=== PATIENT | female | born 1995 | race Caucasian/White ===

== ENCOUNTER 2021-10-31 12:29 | Emergency (ER) | payer OTHER ==
[~2021-10-31] VITALS: Ht 157.5 cm; Wt 113.4 kg
[2021-10-31 12:52] LABS: ABSOLUTE NEUTROPHILS 6.9 thou/uL (1.4-8.2); BASOPHILS 1.2 % (0.0-2.0); EOSINOPHILS 2.7 % (0.0-3.0); HEMOGLOBIN 14.9 gm/dL (12.0-15.0); LYMPHOCYTES 38.9 % (24.0-44.0); MCH 31.1 pg (26.0-34.0); MCHC 33.2 g/dL (28.0-37.0); MCV 93.5 fL (80.0-100.0); MONOCYTES 4.5 % (1.0-8.0); PLATELET COUNT 316 thou/uL (150-400); POLYS 52.7 % (36.0-66.0); RBC 4.81 mil/uL (4.20-5.00); RDW 12.9 % (10.5-14.5); WBC 13.2 thou/uL (4.0-11.0)
[2021-10-31 13:19] VITALS: BP 141/66
[2021-10-31 13:26] LABS: ALBUMIN 3.8 g/dL (3.4-5.0); ANION GAP 12 mmol/L (7-16); BUN 7 mg/dL (7-18); CALCIUM 9.2 mg/dL (8.5-10.1); CHLORIDE 105 mmol/L (98-107); CO2 23 mmol/L (21-32); CREATININE 0.8 mg/dL (0.6-1.0); GLUCOSE 86 mg/dL (74-106); POTASSIUM 3.8 mmol/L (3.5-5.1); SGOT 19 U/L (15-37); SGPT 25 U/L (14-59); SODIUM 140 mmol/L (136-145); TOTAL BILIRUBIN 0.3 mg/dL (0.2-1.0); TOTAL PROTEIN 7.7 g/dL (6.4-8.2)
--- NOTE | 2021-10-31 14:56 | EKG ---
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
== END 2021-10-31 14:22 | disposition home or self-care (01) ==
LOC: ER 12:29
PROVIDERS: Emergency Medicine
DX: R00.0 Tachycardia, unspecified (principal); Z20.822 Contact with and (suspected) exposure to COVID-19; R07.89 Other chest pain; Z88.2 Allergy status to sulfonamides; Z88.5 Allergy status to narcotic agent